=== PATIENT | female | born 1995 | race Caucasian/White ===

== ENCOUNTER 2022-06-08 17:42 | Emergency (ER) | payer OTHER ==
[~2022-06-08] VITALS: Ht 167.6 cm; Wt 77.1 kg
--- OUTSIDE RECORDS SUMMARY | 2022-06-08 17:44 | XMS ---
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 [facility] VISIT COUNT (12 MO.) 3 Roby Orellana TOTAL 4 NOTE: Visits indicate total known visits. ED/UCC VISIT TRACKING (12 MO.) 06/08/2022 17:43 [facility] TYPE: Emergency COMPLAINT: - BACK PAIN 10/21/2021 18:09 [facility] TYPE: Emergency DIAGNOSES: - Back Pain - Lumbago with sciatica, right side 07/28/2021 21:11 [facility] TYPE: Emergency DIAGNOSES: - COVID-19 - Shortness of Breath; Spc 3 - Cough - Cough; Spc 3 - Chest Pain; Spc 3 07/25/2021 10:00 [facility] TYPE: Emergency DIAGNOSES: - Emesis - Cough - COVID-19 - Weakness INPATIENT VISIT TRACKING (12 MO.) No inpatient visits to display in this time frame [id number]
[2022-06-08] MEDS ORDERED: PREDNISONE20 MG PO (18:04)
[2022-06-08] MEDS ORDERED: HYDROCODON-ACE1 EA10 PO (18:04)
[2022-06-08] MEDS ORDERED: LIDODERM1 EACH TOP (18:04)
== END 2022-06-08 18:47 | disposition home or self-care (01) ==
LOC: ED 17:42
DX: M54.41 Lumbago with sciatica, right side (principal)
CPT/HCPCS: 96372; 99283; A9270; J1100; J1885

== ENCOUNTER 2024-05-31 17:02 | Emergency (ER) | payer OTHER ==
[~2024-05-31] VITALS: Ht 160 cm; Wt 97.1 kg
[~2024-05-31 17:02] MED LIST: AMPHETAMINE SAL10 MG PO; ARIPIPRAZOLE2 MG PO; BUSPIRONE HCL7.5 MG PO; DULOXETINE HCL30 MG PO; DULOXETINE HCL60 MG PO; HYDROCODON-ACE1 EA10 PO; LIDODERM1 EACH TOP; LOMOTIL TABLET1 EACH PO; ONDANSETRON ODT4 MG PO; ONDANSETRON ODT8 MG PO; PREDNISONE20 MG PO
--- OUTSIDE RECORDS SUMMARY | 2024-05-31 17:04 | XMS ---
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 PHONE: [phone] CHANTELL JOHNSON Family Medicine: Geriatric Medicine Current PHONE: Unknown Isaac has no Care Guidelines for this patient. [facility] VISIT COUNT (12 MO.) [address] [place] [address] BRANDON Orellana TOTAL 8 NOTE: Visits indicate total known visits. ED/UCC VISIT TRACKING (12 MO.) 05/31/2024 17:02 [facility] TYPE: Emergency COMPLAINT: - MULTIPLE COMPLAINTS 04/09/2024 08:19 [facility] [place] TYPE: Emergency DIAGNOSES: - Pneumonia, unspecified organism - shortness of breath fever 02/23/2024 23:05 [facility] [place] TYPE: Emergency DIAGNOSES: - Pain, unspecified - Pain 01/01/2024 03:41 [facility] [place] TYPE: Emergency DIAGNOSES: - Dizziness and giddiness - Headache, unspecified - Syncope and collapse - SEIZURE 12/30/2023 20:26 [facility] [place] TYPE: Emergency DIAGNOSES: - Syncope and collapse - Seizures 12/11/2023 17:42 [facility] [place] TYPE: Emergency DIAGNOSES: - Melena - NAUSEA VOMITING 10/20/2023 13:14 [facility] TYPE: Emergency COMPLAINT: - ABNORMAL LABS, VOMITING, DIZZY, ABD PAIN DIAGNOSES: - Allergy status to narcotic agent - Allergy status to other drugs, medicaments and biological substances - Allergy status to penicillin - Attention-deficit hyperactivity disorder, unspecified type - Bacteriuria - Fatty (change of) liver, not elsewhere classified - Latex allergy status - Other termite exterminator (current) drug therapy - Right upper quadrant pain 07/14/2023 09:[address] [facility] [place] TYPE: Emergency COMPLAINT: - N/V, HEADACHE DIAGNOSES: - Allergy status to narcotic agent - Allergy status to other drugs, medicaments and biological substances - Allergy status to penicillin - Headache, unspecified - Latex allergy status - Migraine, unspecified, not intractable, without status migrainosus - Nausea with vomiting, unspecified - Other termite exterminator (current) drug therapy - Type 2 diabetes mellitus without complications INPATIENT VISIT TRACKING (12 MO.) No inpatient visits to display in this time frame [id number]
[2024-05-31] MEDS ORDERED: KETOROLAC TROMETHAMINE 30 MG/ML VIAL IV ONE (17:30)
[2024-05-31] MEDS ORDERED: METOCLOPRAMIDE HCL 10 MG/2 ML SDV IV ONE (17:30)
[2024-05-31] MEDS ORDERED: diphenhydrAMINE HCL 50 MG/ML VIAL IV ONE (17:30)
[2024-05-31] MEDS ORDERED: SODIUM CHLORIDE 0.9% 1,000 ML IV PRN (17:30)
[2024-05-31] MEDS ORDERED: KETOROLAC TROME10 MG PO (18:37)
[2024-05-31 18:43] VITALS: BP 103/63
== END 2024-05-31 18:43 | disposition home or self-care (01) ==
LOC: ED 17:02
DX: G43.909 Migraine, unspecified, not intractable, without status migrainosus (principal); Z88.0 Allergy status to penicillin; Z88.5 Allergy status to narcotic agent; Z91.040 Latex allergy status; Z88.8 Allergy status to other drugs, medicaments and biological substances; Z79.899 Other long term (current) drug therapy
CPT/HCPCS: 96374; 96375; 99283-25; J1200; J1885; J2765; J7030

== ENCOUNTER 2024-07-25 13:36 | Emergency (ER) | payer OTHER ==
[~2024-07-25] VITALS: Ht 160 cm; Wt 101.6 kg
[~2024-07-25 13:36] MED LIST changes: +KETOROLAC TROME10 MG PO
[2024-07-25] MEDS ORDERED: DEXTROAMP-AMPHE30 MG PO (14:09)
[2024-07-25] MEDS ORDERED: ondansetron HCL 4 MG/2 ML VIAL IV ONE (14:30)
[2024-07-25] MEDS ORDERED: SODIUM CHLORIDE 0.9% 1,000 ML IV PRN (14:30)
[2024-07-25] MEDS ORDERED: diphenhydrAMINE HCL 50 MG/ML VIAL IV ONE (14:30)
[2024-07-25] MEDS ORDERED: HYDROmorphone HCL 1 MG/ML SYR IV ONE (16:00)
[2024-07-25] MEDS ORDERED: BUTALBITAL-ASA1 EACH PO (16:02)
[2024-07-25] MEDS ORDERED: ONDANSETRON ODT4 MG PO (16:02)
[2024-07-25 17:05] VITALS: BP 111/68
== END 2024-07-25 17:08 | disposition home or self-care (01) ==
LOC: ED 13:36
DX: G43.909 Migraine, unspecified, not intractable, without status migrainosus (principal); R73.03 Prediabetes; Z88.0 Allergy status to penicillin; Z88.5 Allergy status to narcotic agent; Z88.8 Allergy status to other drugs, medicaments and biological substances; Z91.040 Latex allergy status; Z79.899 Other long term (current) drug therapy
CPT/HCPCS: 96374; 96375; 99283-25; J1171; J1200; J2405; J7030

== ENCOUNTER 2024-08-15 09:02 | Emergency (ER) | payer OTHER ==
[~2024-08-15] VITALS: Ht 160 cm; Wt 103.4 kg
[~2024-08-15 09:02] MED LIST changes: +BUTALBITAL-ASA1 EACH PO; +DEXTROAMP-AMPHE30 MG PO
--- OUTSIDE RECORDS SUMMARY | 2024-08-15 09:09 | XMS ---
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 [facility] VISIT COUNT (12 MO.) [address] [place] [address] TOTAL 10 NOTE: Visits indicate total known visits. ED/UCC VISIT TRACKING (12 MO.) 08/15/2024 09:03 [facility] TYPE: Emergency COMPLAINT: - RECTAL BLEEDING 07/29/2024 13:01 [facility] TYPE: Emergency DIAGNOSES: - Depression, unspecified - Migraine, unspecified, intractable, without status migrainosus - Suicidal ideations - Headache (Adult - Recurrent Or Known Dx Migraines) - Medical Clearance - Migraine, blurry vision, nausea, Suicidal ideation - Suicidal Thoughts 07/25/2024 13:36 [facility] TYPE: Emergency COMPLAINT: - MEDICATION REACTION DIAGNOSES: - Allergy status to narcotic agent - Allergy status to other drugs, medicaments and biological substances - Allergy status to penicillin - Hallucinations, unspecified - Latex allergy status - Migraine, unspecified, not intractable, without status migrainosus - 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 [place] TYPE: Emergency DIAGNOSES: - Pneumonia, unspecified organism - shortness of breath fever 02/23/2024 23:[address] [facility] [place] TYPE: Emergency DIAGNOSES: - Pain, unspecified - Pain 01/01/2024 03:[address] [facility] [place] TYPE: Emergency DIAGNOSES: - Dizziness and giddiness - Headache, unspecified - Syncope and collapse - SEIZURE 12/30/2023 20:[address] [facility] [place] TYPE: Emergency DIAGNOSES: - Syncope and collapse - Seizures 12/11/2023 17:[address] [facility] [place] TYPE: Emergency DIAGNOSES: - Melena - [...] classified - Latex allergy status - Other nursing home (current) drug therapy - Right upper quadrant pain INPATIENT VISIT TRACKING (12 MO.) No inpatient visits to display in this time frame [email or web address]
[2024-08-15] MEDS ORDERED: PANTOPRAZOLE SODIUM 40 MG/10 ML VIAL IV ONE (09:45)
[2024-08-15 10:19] LABS: BASOPHILS 0.7 % (0-2); EOSINOPHILS 2.6 % (0-6); HEMOGLOBIN 13.5 g/dL (12.0-18.0); LYMPHOCYTES 20.1 % (24-44); MCH 29.6 (27-36); MCHC 33.7 g/dl (30-36); MCV 87.9 fl (81-99); MONOCYTES 6.6 % (0-12); PLATELET COUNT 260 K/uL (140-440); RBC 4.56 M/ul (4.3-5.7); RDW 13.7 (10.5-15.0)
[2024-08-15] MEDS ORDERED: KETOROLAC TROMETHAMINE 30 MG/ML VIAL IV ONE (10:30)
[2024-08-15 10:35] LABS: INR 0.91 (0.80-1.30); PROTIME 12.2 Sec (11.2-14.2)
[2024-08-15 10:37] LABS: PARTIAL THROMBOPLASTIN TIME 26.5 Sec (22.9-41.3)
[2024-08-15 10:41] LABS: ALBUMIN 3.4 g/dL (3.4-5.0); ALBUMIN/GLOBULIN RATIO 1.06 (1.1-2.4); ANION GAP 8.9 (7-21); BILIRUBIN, TOTAL 0.1 ng/dL (0.2-1.0); BUN/CREATININE RATIO 15.73 (6.0-28.6); CALCIUM 9.7 mg/dL (8.5-10.1); CREATININE, SERUM 0.89 mg/dL (0.55-1.02); POTASSIUM 3.9 mmol/L (3.5-5.1); PROTEIN, TOTAL 6.6 g/dL (6.4-8.2)
[2024-08-15] MEDS ORDERED: CYCLOBENZAPRINE10 MG PO (14:51)
[2024-08-15 15:18] VITALS: BP 108/81
[2024-08-17] MEDS ORDERED: ABILIFY2 MG (13:37)
[2024-08-17] MEDS ORDERED: HYDROCODON-ACE1 EA10 PO (16:42)
[2024-08-17] MEDS ORDERED: PREDNISONE20 MG PO (16:42)
== END 2024-08-15 15:18 | disposition home or self-care (01) ==
LOC: ED 09:02
PROVIDERS: Internal Medicine
DX: K64.9 Unspecified hemorrhoids (principal); F43.0 Acute stress reaction; R52 Pain, unspecified; R73.03 Prediabetes; G43.909 Migraine, unspecified, not intractable, without status migrainosus; K76.0 Fatty (change of) liver, not elsewhere classified; Z88.0 Allergy status to penicillin; Z88.5 Allergy status to narcotic agent; Z88.6 Allergy status to analgesic agent; Z88.8 Allergy status to other drugs, medicaments and biological substances; Z91.040 Latex allergy status; Z79.899 Other long term (current) drug therapy
CPT/HCPCS: 36415; 80053; 83690; 84703; 85025; 85610; 85730; 96374; 96375; 99283-25; J1885; J2470

== ENCOUNTER 2024-08-17 13:25 | Emergency (ER) | payer OTHER ==
[~2024-08-17] VITALS: Ht 160 cm; Wt 106.1 kg
[2024-08-17] MEDS ORDERED: HYDROCODONE/ACETA 5/325 TAB PO ONE (14:00)
[2024-08-17 17:08] VITALS: BP 105/68
== END 2024-08-17 17:05 | disposition home or self-care (01) ==
LOC: ED 13:25
DX: S16.1XXA Strain of muscle, fascia and tendon at neck level, initial encounter (principal); V89.2XXA Person injured in unspecified motor-vehicle accident, traffic, initial encounter; M54.16 Radiculopathy, lumbar region; R73.03 Prediabetes; Z88.0 Allergy status to penicillin; Z88.5 Allergy status to narcotic agent; Z88.8 Allergy status to other drugs, medicaments and biological substances; Z91.040 Latex allergy status; Z79.899 Other long term (current) drug therapy
CPT/HCPCS: 72125; 72131; 84703; 99284-25

== ENCOUNTER 2024-08-25 17:58 | Emergency (ER) | payer OTHER ==
[~2024-08-25] VITALS: Ht 160 cm; Wt 103.9 kg
[~2024-08-25 17:58] MED LIST changes: +ABILIFY2 MG; +CYCLOBENZAPRINE10 MG PO
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
[2024-08-25] MEDS ORDERED: methylPREDNISolone 4 MG HOME.PACK PO ONE (22:00)
[2024-08-25 22:03] VITALS: BP 107/66
== END 2024-08-25 22:03 | disposition home or self-care (01) ==
LOC: ED 17:58
DX: M54.50 Low back pain, unspecified (principal); G89.29 Other chronic pain; N39.3 Stress incontinence (female) (male); R73.03 Prediabetes; G43.909 Migraine, unspecified, not intractable, without status migrainosus; Z88.0 Allergy status to penicillin; Z88.5 Allergy status to narcotic agent; Z88.8 Allergy status to other drugs, medicaments and biological substances; Z91.040 Latex allergy status; Z88.6 Allergy status to analgesic agent; Z79.899 Other long term (current) drug therapy
CPT/HCPCS: 51702; 99283-25

== ENCOUNTER 2024-08-27 17:07 | Emergency (ER) | payer OTHER ==
[~2024-08-27] VITALS: Ht 160 cm; Wt 103.0 kg
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
[2024-08-27] MEDS ORDERED: PREDNISONE20 MG PO (17:20)
[2024-08-27] MEDS ORDERED: HYDROCODON-ACE1 EA10 (17:55)
[2024-08-27] MEDS ORDERED: PREDNISONE20 MG (17:55)
[2024-08-27] MEDS ORDERED: OSTERA TABLET1 EACH PO (17:56)
[2024-08-27] MEDS ORDERED: B12 ACTIVE1000 MCG PO (17:56)
[2024-08-27 19:13] LABS: BASOPHILS 0.4 % (0-2); EOSINOPHILS 2.1 % (0-6); HEMATOCRIT 40.3 % (35.0-50.0); HEMOGLOBIN 13.7 g/dL (12.0-18.0); LYMPHOCYTES 30.2 % (24-44); MCH 29.7 (27-36); MCV 87.3 fl (81-99); MONOCYTES 7.1 % (0-12); NEUTROPHILS 60.2 % (39-80); PLATELET COUNT 203 K/uL (140-440); RBC 4.62 M/ul (4.3-5.7); RDW 13.9 (10.5-15.0)
[2024-08-27 19:20] LABS: AMPHETAMINES, URINE NEGATIVE (NEGATIVE); BARBITURATES, URINE NEGATIVE (NEGATIVE); BENZODIAZEPINE, URINE NEGATIVE (NEGATIVE); BUPRENORPHINE, URINE NEGATIVE (NEGATIVE); CANNABINOID, URINE POSITIVE (NEGATIVE); COCAINE, URINE NEGATIVE (NEGATIVE); ECSTASY, URINE NEGATIVE (NEGATIVE); FENTANYL, URINE NEGATIVE (NEGATIVE); METHADONE, URINE NEGATIVE (NEGATIVE); OPIATES, URINE NEGATIVE (NEGATIVE); OXYCODONE, URINE NEGATIVE (NEGATIVE); PHENCYCLIDINE, URINE NEGATIVE (NEGATIVE)
[2024-08-27 19:39] LABS: ACETAMINOPHEN 0 ug/mL (10-30); ALBUMIN 3.2 g/dL (3.4-5.0); ALBUMIN/GLOBULIN RATIO 0.89 (1.1-2.4); ALCOHOL, MEDICAL <3 ng/dL (<3); ALKALINE PHOSPHATASE 107 U/L (46-116); ALT (SGPT) 96 U/L (14-59); ANION GAP 9.4 (7-21); AST (SGOT) 26 U/L (15-37); BILIRUBIN, TOTAL 0.2 mg/dL (0.2-1.0); BUN/CREATININE RATIO 13.15 (6.0-28.6); CARBON DIOXIDE 32 mmol/L (21-32); CHLORIDE 105 mmol/L (98-107); CREATININE, SERUM 0.76 mg/dL (0.55-1.02); GLOMERULAR FILTRATION RATE,EST 108 mL/min (>60); POTASSIUM 3.4 mmol/L (3.5-5.1); PROTEIN, TOTAL 6.8 g/dL (6.4-8.2); SALICYLATE 1.1 mg/dL (2.8-20.0); UREA NITROGEN 10 mg/dL (7-18)
[2024-08-27 20:29] VITALS: BP 119/74
== END 2024-08-27 20:38 | disposition home or self-care (01) ==
LOC: ED 17:07
PROVIDERS: Emergency Medicine
DX: R21 Rash and other nonspecific skin eruption (principal); M54.50 Low back pain, unspecified; G89.29 Other chronic pain; R45.851 Suicidal ideations; R73.03 Prediabetes; G43.909 Migraine, unspecified, not intractable, without status migrainosus; Z88.0 Allergy status to penicillin; Z88.5 Allergy status to narcotic agent; Z88.6 Allergy status to analgesic agent; Z88.8 Allergy status to other drugs, medicaments and biological substances; Z91.040 Latex allergy status; Z79.899 Other long term (current) drug therapy
CPT/HCPCS: 36415; 80053; 80307; 84443; 84703; 85025; 93005; 93010; 99283; G0480